=== PATIENT | female | born 1990 | race Caucasian/White ===

== ENCOUNTER 2016-09-07 21:00 | Inpatient (IN) | payer OTHER ==
--- NOTE | ~2016-09-07 | DS ---
Unit #: [id number] #: [id number] Patient: ANCA WADSWORTH [id number] [facility] [address] [place] [address] [id number] MR#: [id number] NAME: ANCA WADSWORTH ROOM: P202 Age: 25 Sex: F Admission Date: 09/08/2016 : 1990 Discharge Date: 09/12/2016 Attending Physician: Nerissa Burton M.D. Primary Care Physician: Misa Pereira M.D. DISCHARGE SUMMARY IDENTIFYING DATA Ms. Wadsworth is a 25-year-old single white female, who is a resident of [place], [place], and was self-referred to the hospital on a voluntary basis. DISCHARGE DIAGNOSES Psychiatric: Opioid dependence, moderate, in acute withdrawals; benzodiazepine dependence, moderate, in acute withdrawals; alcohol dependence, moderate; methamphetamine dependence, moderate; cannabis dependence, moderate; opioid-induced mood disorder. Medical: None. Stressors: Moderate psychosocial stressors. HISTORY OF PRESENT ILLNESS Ms. Wadsworth is a 25-year-old white female, who was self-referred to the hospital stating that she is an IV heroin user, who has been using for about 5 years and reports using between 0.5 to 1 g a day and also reports using between 10 to 20 mg of Xanax a day and reports that she has last used that morning around 1 or 2 and does report increasing depression and anxiety with significant withdrawal symptoms including tremors, runny nose, muscle spasms, headaches, irritability, yawning, and poor sleep and appetite. She reports that she relapsed 2-1/2 months ago and also has been using methamphetamine, alcohol, and cannabis. She reports that she is self-employed. She reports that she is having problem due to her substance abuse and has graduated from high school and lives alone and has poor social support system with financial problems and relationship issues with family and does report increasing depression, feelings of hopelessness and helplessness, and poor energy level and that she feels that she [place] in the [place] and she does not have anything to do; however, she denies any suicidal ideation. PAST PSYCHIATRIC HISTORY The patient has had a history of inpatient chemical dependency treatment at [facility] multiple times in addition to being at [facility] and [place], and review of the medical records indicate currently she is not active in any treatment program, is not seeing a psychiatrist, and is not taking any psychotropic medications. PAST MEDICAL HISTORY Migraine headaches. HOSPITAL COURSE The patient was admitted to the adult chemical dependency unit at [facility] and was oriented to the hospital environment. Her routine p.r.n. Unit #: [id number] #: [id number] Patient: ANCA WADSWORTH medications were initiated, and she was started back on her home medications and medications were adjusted and she was closely monitored. She was taking medications regularly and was tolerating them fairly well and was able to show a decent therapeutic response and was willing to continue treatment on an outpatient basis. DISCHARGE MEDICATIONS None. DISCHARGE CONDITION Stable. PROGNOSIS Fair. Dictated by... Nerissa Burton M.D. KEON/jb TD: 09/12/2016 12:16 JOB #: [id number] DISCHARGE SUMMARY Page 1 of 1 X Nerissa Burton MD X DISCHARGE SUMMARY
--- NOTE | ~2016-09-07 | HP ---
Unit #: [id number] #: [id number] Patient: ANCA WADSWORTH [id number] [place] [address] [id number] MR#: [id number] NAME: ANCA WADSWORTH ROOM: P214 Age: 25 Sex: F Admission Date: 09/08/2016 : 1990 Attending Physician: Nerissa Burton M.D. Admitting Physician: Nerissa Burton M.D. Primary Care Physician: Misa Pereira M.D. HISTORY AND PHYSICAL HISTORY OF PRESENT ILLNESS Omid is a 25 year old admitted to [address] [place] [address] because of her drug use. She shoots heroin. PAST MEDICAL HISTORY 1. Long history of opioid abuse to include IV heroin. 2. Hepatitis C. 3. History of kidney stones. 4. History of withdrawal seizures, benzodiazepines. PAST SURGICAL HISTORY Lazy eye as a child. ALLERGIES No known drug allergies. SOCIAL HISTORY Smokes 1 pack per day. Denies alcohol. Admits to a long history of illicit substance abuse to include IV heroin. FAMILY HISTORY Medically noncontributory. REVIEW OF SYSTEMS CONSTITUTIONAL: No fever or chills. HEENT: Denies any sore throat, ear pain or runny nose. CARDIOVASCULAR: Denies chest pain, irregular heart rhythm or palpitations. CHEST: Denies shortness of breath or cough. No hemoptysis. GASTROINTESTINAL: Denies nausea, vomiting, diarrhea or chronic constipation. ENDOCRINE: Denies history of increased thirst or urination. No recent significant weight loss or gain. GENITOURINARY: Denies dysuria, frequency, or hematuria. SKIN: Denies any rashes. HEMATOLOGIC: Denies history of increased bleeding or bruising. MUSCULOSKELETAL: Denies any hot, swollen joints. No generalized muscle pain. NEUROLOGIC: Denies problems with vision or speech. No frequent, severe headaches. No numbness, tingling or weakness in any extremities. Denies loss of bladder or bowel control. CURRENT MEDICATIONS Detox protocol. Unit #: [id number] #: [id number] Patient: ANCA WADSWORTH PHYSICAL EXAMINATION GENERAL: Alert, well-nourished, in no apparent distress. VITAL SIGNS: Blood pressure 100/60, heart rate 80, respirations 16, temperature 98.6. WEIGHT: 98 pounds. HEIGHT: 5 feet 1 inch. SKIN: Warm and dry without rash. She has multiple small red raised nontender areas along her left forearm. These correspond with sites of IV drug use. HEENT: Normocephalic. TMs not viewed. Oral and nasal passages clear. Conjunctivae clear. PERRLA. EOMs intact. NECK: Supple without lymphadenopathy or thyromegaly. HEART: Regular rate and rhythm without murmur. LUNGS: Clear. ABDOMEN: Soft, nontender. : Not done. EXTREMITIES: No evidence of cyanosis, clubbing or edema. Moves all without focal deficit. NEUROLOGICAL: Grossly within normal limits. Cranial Nerves: II: Visual perez are intact. III, IV AND : Extraocular movements are intact. Pupils are equal, round and reactive to light. V: Facial sensation is grossly normal. VII: Facial movements and expression are normal. VIII: Auditory acuity grossly intact. IX, X: Uvula is midline. Phonation is normal. XI: Patient shrugs shoulders and turns head normally. XII: Tongue protrudes in the midline. Sensory and Motor Function: Sensory and motor sensation is grossly normal. Motor: moves all extremities well. Coordination: Gait is normal. Deep Tendon Reflexes: Intact. IMPRESSION 1. Psychiatric admission. 2. IV drug use. 3. Early abscesses along her left forearm. RECOMMENDATIONS PSYCHIATRIC: Per psychiatrist. MEDICAL: 1. See no contraindication to participate in facility's activities. 2. Start Cleocin 300 mg t.i.d. x7 days. MEDICAL PROGNOSIS Good. MEDICAL CONDITION Stable. Dictated by... Chuyita LimaA.-C. for Sarah Orona/maya TD: 09/08/2016 17:27 Unit #: [id number] #: [id number] Patient: ANCA WADSWORTH JOB #: [id number] HISTORY AND PHYSICAL Page 1 of 1 X Jamila Vera HISTORY AND PHYSICAL
--- NOTE | ~2016-09-07 | A ---
[facility] Nutrition Therapy DATE: 09/11/16 Patient: ANCA MCCABE ERMELINDA Physician: LAUREN Address: [address] [place] [address] Room/Bed: [address], Zip: [place] [address] Admit Date: 09/08/16 Date of : [birth year] Height: 5 1 Weight: 97 [phone] NUTRITIONAL ASSESSMENT: REASON: LOW BMI (18.5) PATIENT ADMITTED FOR DETOX PMH: HEP C, WITHDRAWAL SEIZURES Anthropometrics: HT: 61", WT: 98#, BMI: 18.5, %IBW: 93 Labs: NO LABS AVAILABLE Meds: SEROTARANL, MVI, DETOX Assessment: PATIENT IS A 25 Y/O FEMALE ADMITTED FOR DETOX. PATIENT IS CURRENTLY SELF-EMPLOYED, LIVES ALONE, SMOKES 1 PPD, HAS DAILY HEROIN AND XANAX USE, AND SHE ALSO USES COCAINE, MARIJUANA, AND METH. PATIENT RELAPSED 2 1/2 MONTHS AGO. PATIENT HAS A HX OF INPATIENT CHEMICAL DEPENDENCY TREATMENT. PER NEEDS ASSESSMENT PATIENT STATED A FAIR APPETITE WITH AN 8# WEIGHT GAIN OVER THE LAST FEW MONTHS, AND SHE HAS NOT BEEN SLEEPING (AVG 3HOURS/NIGHT). WEIGHT HX PER MEDITECH SHOWS A 9# WEIGHT INCREASE SINCE HER LAST ADMIT 2 YEARS AGO. NURSING REPORTS GOOD PO INTAKES. PATIENTHAS SMALL RED RAISED AREAS TO l-FOREARM D/T IV DRUG USE, WITH NO FURTHER SKIN BREAKDOWN NOTED ATT. PATIENT IS ON A REGULAR DIET AND SHE IS 93% OF HER IBW. Dx: INADEQUATE NUTRIENT INTAKE R/T CURRENT CONDITION, DRUG USE AEB LOW BMI. Intervention: REGULAR DIET, MEDS PER MD, DETOX, PSYCH Monitoring, Evaluation and Goals: 1. ADEQUATEPO INTAKES >50% OF MEALS 2. PREVENT, CORRECT MICRO/MACRO NUTRIENT DEFICIENCIES 3. PROMOTE A STEADY WEIGHT GAIN TOWARDS A HEALTHY BMI OF 19-25 MONITOR: WEIGHTS, LABS, PO/FLUID INTAKES Recommendations: 1. CONTINUE REGULAR DIET TOLERATED. OFFER SNACKS BETWEEN MEALS. IF PATIENT HAS C/O HUNGER PLEASE ORDER LARGE PORTION ENTREES AND RD WILL APPROVE 2. ENCOURAGE ADEQUATE PO AND FLUID INTAKES 3. OBTAIN WEIGHTS ROUTINELY (EVERY 3-4 DAYS) 4. IF PO INTAKES FALL BELOW 50% OF MEALS PLEASE ORDER ENSURE BID TO PROMOTE ADEQUATE KCAL [facility] Nutrition Therapy DATE: 09/11/16 Patient: ANCA MCCABE ERMELINDA Physician: LAUREN Address: [address] [place] [address] Room/Bed: [address], Zip: [place] [address] Admit Date: 09/08/16 Date of : [birth year] Height: 5 1 Weight: [id number] TO F/U PER PROTOCOL AND PRN R/T PATIENT MILDLY COMPROMISED Respectfully, JOSE HERNANDEZ RD, LD [facility] cc: client file
--- NOTE | ~2016-09-07 | PN ---
Unit #: [id number] #: [id number] Patient: ANCA WADSWORTH [id number] [facility] [address] [place] [address] [id number] I MR#: [id number] NAME: ANCA WADSWORTH ROOM: P214 Age: 25 Sex: F Admission Date: 09/08/2016 : 1990 Attending Physician: Nerissa Burton M.D. Admitting Physician: Nerissa Bruton M.D. Primary Care Physician: Sarah Abraham PROGRESS NOTES DATE 09/09/2016 DISCUSSION Ms. Wadsworth is a 25-year-old white female with substance abuse and mood disorder who was seen today and chart was reviewed and case was discussed with the staff. She has been anxious, withdrawn and seclusive to herself. Meanwhile, she has been cooperative with treatment recommendations and has been taking medications and tolerating them fairly well with no reported side effects. MENTAL STATUS EXAMINATION Young white female who was casually dressed with fair personal hygiene and appears to be in no acute distress or discomfort. She was awake and alert with impaired attention and concentration. Her mood was anxious with congruent affect. She denies any suicidal or homicidal ideation. Her insight and judgement remains slightly impaired. TREATMENT PLAN 1. Will current treatment protocol. Will monitor her response and make further adjustments as needed. 2. Will continue to follow up. Dictated by... Sarah Marcelo/maya TD: 09/09/2016 18:40 JOB #: [id number] Unit #: [id number] #: [id number] Patient: ANCA WADSWORTH PROGRESS NOTES Page 1 of 1 X Nerissa Burton MD X PROGRESS NOTE
--- NOTE | ~2016-09-07 | PN ---
Unit #: [id number] #: [id number] Patient: ANCA WADSWORTH [id number] [facility] [address] [place] [address] [id number] I MR#: [id number] NAME: ANCA WADSWORTH ROOM: P202 Age: 25 Sex: F Admission Date: 09/08/2016 : 1990 Attending Physician: Nerissa Burton M.D. Admitting Physician: Nerissa Burton M.D. Primary Care Physician: Sarah Abraham PROGRESS NOTES DATE September 11, 2016 DISCUSSION Ms. Wadsworth is a 25-year-old white female, who was seen today and chart was reviewed and the case was discussed with the staff. She has been anxious, withdrawn, and rather seclusive to herself. She reports that she has been cooperative with the treatment recommendations and she has been taking the medications and tolerating them fairly well. MENTAL STATUS EXAMINATION Young white female, who was casually dressed with fair personal hygiene and appears to be in no acute distress or discomfort. She was awake and alert with intact orientation. Her mood was anxious with a congruent affect. The patient denies any suicidal or homicidal ideations. Her insight and judgment remain slightly impaired. TREATMENT PLAN 1. We will continue her on her current medications and treatment protocol, and will monitor her response to the medications, and make further adjustments as needed. 2. We will continue to followup. Dictated by... Sarah Marcelo/chloe TD: 09/12/2016 14:49 JOB #: [id number] Unit #: [id number] #: [id number] Patient: ANCA WADSWORTH ASA PROGRESS NOTES Page 1 of 1 X Nerissa Burton MD X PROGRESS NOTE
--- NOTE | ~2016-09-07 | PA ---
Unit #: [id number] #: [id number] Patient: ANCA WORTHY [id number] [facility] [address] [place] [address] [id number] MR#: [id number] NAME: ANCA WORTHY ROOM: P214 Age: 25 Sex: F Admission Date: 09/08/2016 : 1990 Date of Assessment: 09/08/2016 Attending Physician: Nerissa Burton M.D. Admitting Physician: Nerissa Burton M.D. Primary Care Physician: Misa Pereira M.D. PSYCHIATRIC ASSESSMENT IDENTIFYING DATA Ms. Worthy is a 25-year-old single white female, who is a resident of [place], [place], and was self-referred to the hospital on a voluntary basis. CHIEF COMPLAINT "I've been an IV heroin user." HISTORY OF PRESENT ILLNESS Ms. Worthy is a 25-year-old white female, who was self-referred to the hospital stating that she is an IV heroin user, who has been using for about 5 years and reports using between 0.5 to 1 g a day and also reports using between 10 to 20 mg of Xanax a day and reports that she has last used that morning around 1 or 2 and does report increasing depression and anxiety with significant withdrawal symptoms including tremors, runny nose, muscle spasms, headaches, irritability, yawning, and poor sleep and appetite. She reports that she relapsed 2-1/2 months ago and also has been using methamphetamine, alcohol, and cannabis. She reports that she is self-employed. She reports that she is having problem due to her substance abuse and has graduated from high school and lives alone and has poor social support system with financial problems and relationship issues with family and does report increasing depression, feelings of hopelessness and helplessness, and poor energy level and that she feels that she [place] in the [place] and she does not have anything to do; however, she denies any suicidal ideation. SUBSTANCE ABUSE HISTORY The patient reports history of alcohol, cannabis, cocaine, acid, opioids, amphetamines, and benzodiazepines abuse and reports that she has been using 10 to 20 mg of Xanax a day and has been using up to a gram of IV heroin a day, though she also reports that she has used alcohol and has had history of blackouts on a daily basis and has been using cannabis and methamphetamine IV as well. PAST PSYCHIATRIC HISTORY The patient has had a history of inpatient chemical dependency treatment at [facility] multiple times in addition to being at [facility] and [place], and review of the medical records indicate currently she is not active in any treatment program, is not seeing a psychiatrist, and is not taking any psychotropic medications. PAST MEDICAL HISTORY Migraine headaches. Unit #: [id number] #: [id number] Patient: ANCA WORTHY ALLERGIES No known medication allergies. PERSONAL AND SOCIAL HISTORY A 25-year-old white female, who reports that she is single and self-employed and lives alone and has poor social support system. MENTAL STATUS EXAMINATION Young white female, who was casually dressed with fair personal hygiene, appears to be in no acute distress or discomfort. She was awake and alert on interaction with intact orientation. Her mood was anxious and depressed with a congruent affect. Her speech was slow and goal directed. She denies any suicidal or homicidal ideations and also denies any auditory or visual hallucinations. Her insight and judgment remain significantly impaired. DIAGNOSTIC IMPRESSION Psychiatric: Opioid dependence, moderate, in acute withdrawals; benzodiazepine dependence, moderate, in acute withdrawals; alcohol dependence, moderate; methamphetamine dependence, moderate; cannabis dependence, moderate; and opioid-induced mood disorder. Medical: None. Stressors: Moderate psychosocial stressors. TREATMENT PLAN 1. The patient has presented with a history of mood disorder and substance abuse and has been decompensating and will need inpatient hospitalization for detoxification, safety, and stabilization. We will start her on detox protocol. We will closely monitor for any worsening withdrawal symptoms. 2. Supportive therapy was provided to the patient. 3. Safe, structured, and nourishing environment will be provided. ESTIMATED LENGTH OF STAY 5 to 7 days. ABILITY TO HELP SELF Limited. WILLINGNESS TO HELP SELF The patient appears to be willing to help self. STRENGTHS 1. Communicative. 2. Cooperative. PROBLEMS 1. Chronic dysphoric symptoms. 2. Chronic chemical dependency. 3. Poor social support system. DISCHARGE CRITERIA This will be contingent upon the patient's ability to go through detox without having any significant withdrawal symptoms as well as her ability to stay safe to herself, particularly after discharge from the hospital. Dictated by... Unit #: [id number] #: [id number] Patient: ANCA WORTHY M.D. IAA/jb TD: 09/08/2016 18:52 JOB #: [id number] PSYCHIATRIC ASSESSMENT Page 1 of 1 X Nerissa Burton MD PSYCHIATRIC ASSESSMENT
--- NOTE | ~2016-09-07 | PN ---
Unit #: [id number] #: [id number] Patient: ANCA WADSWORTH [id number] [facility] [address] [place] [address] [id number] MR#: [id number] NAME: ANCA WADSWORTH ROOM: P202 Age: 25 Sex: F Admission Date: 09/08/2016 : 1990 Attending Physician: Nerissa Burton M.D. Admitting Physician: Nerissa Burton M.D. Primary Care Physician: Sarah Abraham PROGRESS NOTES DATE 09/10/2016 DISCUSSION Ms. Wadsworth is a 35-year-old white female who was seen today and chart was reviewed and case was discussed with the staff. She has been exhibiting very inappropriate manipulative behavior as she was found smoking in her room and apparently she has taken male patient and then she was seen to be flirting male patients. Meanwhile appears to be poorly focused towards treatment. Meanwhile, she has been taking the medications and tolerating them fairly well. MENTAL STATUS EXAMINATION Young white female who was casually dressed with fair personal hygiene, appears to be in no acute distress or discomfort. She was awake and alert with impaired attention and concentration. Her mood was anxious with congruent affect. She denies any suicidal or homicidal ideations. Her insight and judgement remains slightly impaired. TREATMENT PLAN 1. We will continue her on her current medications and treatment protocol. We will monitor her response to the medication and make further adjustments as needed. 2. We will continue to follow up. Dictated by... Sarah Marcelo/wilbert TD: 09/12/2016 02:43 JOB #: [id number] Unit #: [id number] #: [id number] Patient: ANCA WADSWORTH PROGRESS NOTES Page 1 of 1 X Nerissa Burton MD PROGRESS NOTE
== END 2016-09-12 14:05 | disposition home or self-care (01) | DRG 897 ==
LOC: P2S 09-08 00:27
PROC: HZ2ZZZZ Detoxification Services for Substance Abuse Treatment (ICD-10-PCS; principal; 2016-09-08)
DX: F11.23 Opioid dependence with withdrawal (principal); F11.24 Opioid dependence with opioid-induced mood disorder; F10.20 Alcohol dependence, uncomplicated; F13.239 Sedative, hypnotic or anxiolytic dependence with withdrawal, unspecified; F12.20 Cannabis dependence, uncomplicated